=== PATIENT | male | born 1970 | race Caucasian/White ===

== ENCOUNTER → 2019-07-14 | Outpatient (CLI) | payer OTHER ==
--- NOTE | 2019-07-14 11:03 | REP ---
MRI RIGHT KNEE WITHOUT CONTRAST: HISTORY: Pain in the right knee. 3 weeks post injury. No comparison imaging is available. TECHNIQUE: Axial, coronal and sagittal imaging planes utilized. T1, proton density and T2-weighted scans were included with and without fat saturation. MRI FINDINGS: Cortical and medullary bone signal intensity are normal. There is no evidence of occult fracture. There is a small quantity of joint fluid. No discernible Dixon's cyst. Medial and lateral patellar retinacular structures are intact. There is eccentric focal zone of T1- and T2-weighted hyperintensity in the proximal 1.5 to 2 cm on the patellar tendon along the medial aspect of the patellar tendon consistent with advanced patellar tendonitis. There is nonarticular spurring of the patella at this location. There is also nonarticular fairly advanced spurring at the quadriceps tendon insertion on the anterior patella. Quadriceps tendon itself appears intact. There is soft tissue swelling and edema in the prepatellar tendon soft tissues at this level. There is minimal edema in the infrapatellar fat. Small amount of joint effusion. Anterior posterior cruciate ligaments are intact. There is no evidence of medial or lateral collateral ligament disruption. No medial or lateral meniscal tear is appreciated. There is a small focus of heterogeneous signal in the articular cartilage of the medial tibial plateau adjacent to the mid body segment of the meniscus consistent with chondromalacia. There is subcortical cyst formation in the proximal tibia posteriorly and laterally. There is an irregular fluid tracks extending cranially from this level. At the posterior joint line, there is a rounded structure surrounded by fluid posterior to the distal limb of the posterior cruciate ligament. This contains fat on fat suppression images . This does not appear to be within the joint. IMPRESSION: 1. Focal patellar tendonitis tendinosis medially and proximally with adjacent edema consistent with acute change. There is also evidence of chronic patellar and quadriceps tendonitis with spurring. 2. Subcortical cyst formation in the posterior lateral tibial plateau with irregularly shaped ganglion cyst-like structure. 3. Minimal joint effusion. 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 Otherwise negative. Electronically Signed by Kel Callahan MD 07/14/2019 11:28 A
== END ==
LOC: M RAD 09:00
PROVIDERS: ATTEND Internal Medicine
DX: M25.561 Pain in right knee (principal)